=== PATIENT | male | born 1960 | race African-American/Black ===

== ENCOUNTER 2020-05-15 08:59 | Outpatient (CLI) | payer BC ==
[2020-05-15] MEDS ORDERED: Iopamidol 370 76% 100 ML VIAL ONE (10:37)
== END 2020-05-15 09:00 | disposition home or self-care (01) ==
LOC: CT 08:59
PROVIDERS: ATTEND Internal Medicine
DX: C18.7 Malignant neoplasm of sigmoid colon (principal); K63.89 Other specified diseases of intestine
CPT/HCPCS: 74177; 82565; Q9967

== ENCOUNTER 2021-10-02 11:29 | Outpatient (CLI) | payer BC ==
[2021-10-02 13:37] LABS: Hemoglobin 13.7 g/dL (13.5-17.5); Mean Corpuscular HGB CONC 32.7 g/dL (32.0-36.0); Mean Corpuscular Hemoglobin 29.2 pg (27.0-33.0); Mean Corpuscular Volume 89.3 fl (81.2-95.1); Mean Platelet Volume 9.2 fl (7.4-10.4); Platelet Count 259 10x3/uL (150-450); Red Blood Cell (RBC) Count 4.69 10x6/uL (4.32-5.72); White Blood Cell (WBC) Count 4.5 10x3/uL (3.5-10.5)
[2021-10-02 14:03] LABS: Anion Gap 16 mmol/L (10-20); BUN (Urea Nitrogen) 21 mg/dL (8.4-25.7); Calc. Creatinine Clearance 0 mL/min (70-130); Calcium 9.6 mg/dL (7.8-10.44); Carbon Dioxide 29 mmol/L (23-31); Chloride 100 mmol/L (98-107); Estimated GFR 56; Glucose 109 mg/dL (80-115); Potassium 3.8 mmol/L (3.5-5.1); Sodium 141 mmol/L (136-145)
== END 2021-10-02 11:30 | disposition home or self-care (01) ==
LOC: LABBT 11:29
PROVIDERS: ATTEND Neurological Surgery
DX: Z01.818 Encounter for other preprocedural examination (principal); M48.062 Spinal stenosis, lumbar region with neurogenic claudication; Z20.822 Contact with and (suspected) exposure to COVID-19
CPT/HCPCS: 80048; 85027; 87811; 93005; 93010

== ENCOUNTER 2021-10-07 08:42 | Observation (INO) | payer BC ==
[2021-10-07] MEDS ORDERED: HYDROcodone/Acetaminophen 7.5/325 mg Tablet PO PRN ×2 (10:47)
[2021-10-07] MEDS ORDERED: traMADol HCl 50 MG TAB PO PRN (10:47)
[2021-10-07] MEDS ORDERED: Acetaminophen 325 MG TAB PO PRN (10:47)
[2021-10-07] MEDS ORDERED: Cyclobenzaprine 10 MG TAB PO PRN (10:47)
[2021-10-07] MEDS ORDERED: Promethazine 25 MG TAB PO PRN (10:47)
[2021-10-07] MEDS ORDERED: Ondansetron PF 4 MG/2 ML Vial IVP PRN (10:47)
[2021-10-07] MEDS ORDERED: Morphine 2 MG/ML VIAL SLOW IVP PRN (10:47)
[2021-10-07] MEDS ORDERED: Mag-Al 1200 mg/1200 mg/30 ML UDCUP PO PRN (10:47)
[2021-10-07] MEDS ORDERED: fentaNYL Citrate/PF 100 MCG/2 ML SYRINGE ONE ×2 (12:12→14:09)
[2021-10-07] MEDS ORDERED: Thrombin 5000 UNITS/5 ML VIAL ONE (12:20)
[2021-10-07] MEDS ORDERED: Sodium Chloride 0.9% 100 ML ONE (12:24)
[2021-10-07] MEDS ORDERED: CEFAZOLIN 2 GM VIAL ONE (12:24)
[2021-10-07] MEDS ORDERED: Rocuronium Bromide 10 MG/ML (10ML VIAL) ONE (12:33)
[2021-10-07] MEDS ORDERED: PROPOFOL 200 MG/20 ML VIAL ONE ×2 (12:33)
[2021-10-07] MEDS ORDERED: Glycopyrrolate 0.2 MG/ML 5 ML SYRINGE ONE (12:33)
[2021-10-07] MEDS ORDERED: Phenylephrine 10 MG/ML VIAL ONE (12:33)
[2021-10-07] MEDS ORDERED: ePHEDrine 50 MG/ML VIAL ONE (12:33)
[2021-10-07] MEDS ORDERED: Dexamethasone 20 MG/5 ML VIAL ONE (12:33)
[2021-10-07] MEDS ORDERED: Ondansetron PF 4 MG/2 ML Vial ONE (12:33)
[2021-10-07] MEDS ORDERED: Lidocaine 1% PF 5 ML VIAL ONE ×2 (12:33)
[2021-10-07] MEDS ORDERED: SUGAMMADEX SODIUM 200 MG/2 ML VIAL ONE (14:09)
[2021-10-07] MEDS ORDERED: Fentanyl 100 MCG/2 ML VIAL ONE ×2 (14:32→15:09)
[2021-10-07] MEDS ORDERED: HYDROmorphone 0.5 MG/0.5 ML SYRINGE ONE (14:32)
[2021-10-07] MEDS: hydrALAZINE 25 MG TAB PO SCH ×2 (18:38→20:23)
[2021-10-07] MEDS: Carvedilol 25 MG TAB PO SCH ×2 (18:38→18:42)
[2021-10-07] MEDS: CEFAZOLIN 2 GM in Sodium Chloride 0.9% 100 ML IVPB SCH (18:42)
[2021-10-07] MEDS: Sodium Chloride 0.9% 1,000 ML IV SCH ×2 (18:44→23:41)
[2021-10-07 18:49] VITALS: BMI 39.1
[2021-10-08] MEDS: CEFAZOLIN 2 GM in Sodium Chloride 0.9% 100 ML IVPB SCH ×3 (02:13→17:42)
[2021-10-08] MEDS: Carvedilol 25 MG TAB PO SCH ×3 (08:27→16:11)
[2021-10-08] MEDS: hydrALAZINE 25 MG TAB PO SCH ×3 (08:28→21:15)
[2021-10-08] MEDS: Lisinopril 20 MG TAB PO SCH (08:28)
[2021-10-08] MEDS: Triamterene/Hydrochlorothiazid 75 mg/50 mg Tablet PO SCH (08:30)
[2021-10-08] MEDS: Sodium Chloride 0.9% 1,000 ML IV SCH (14:21)
[2021-10-09] MEDS: CEFAZOLIN 2 GM in Sodium Chloride 0.9% 100 ML IVPB SCH ×2 (02:12→08:26)
[2021-10-09] MEDS: Sodium Chloride 0.9% 1,000 ML IV SCH (07:07)
[2021-10-09] MEDS: Carvedilol 25 MG TAB PO SCH ×2 (08:24→13:11)
[2021-10-09] MEDS: hydrALAZINE 25 MG TAB PO SCH (08:24)
[2021-10-09] MEDS: Lisinopril 20 MG TAB PO SCH (08:25)
[2021-10-09] MEDS: Triamterene/Hydrochlorothiazid 75 mg/50 mg Tablet PO SCH (08:26)
[2021-10-09 12:30] VITALS: BP 119/61; TEMP 99.8
== END 2021-10-09 13:50 | disposition home or self-care (01) ==
LOC: SDC 08:42 → T4-B 10:51
PROVIDERS: ADMIT Neurological Surgery; ATTEND Neurological Surgery
PROC: 01NB0ZZ Release Lumbar Nerve, Open Approach (ICD-10-PCS; principal; 2021-10-07)
DX: M48.062 Spinal stenosis, lumbar region with neurogenic claudication (principal); I10 Essential (primary) hypertension; E78.5 Hyperlipidemia, unspecified; G47.30 Sleep apnea, unspecified; M19.90 Unspecified osteoarthritis, unspecified site; E66.01 Morbid (severe) obesity due to excess calories; Z68.39 Body mass index [BMI] 39.0-39.9, adult; Z87.891 Personal history of nicotine dependence; Z79.899 Other long term (current) drug therapy
CPT/HCPCS: 76000; J0690; J1100; J1170; J2370; J2405; J2704; J2710; J3010; J3370; J3490; J7050